=== PATIENT | male | born 1965 | race Caucasian/White ===

== ENCOUNTER → 2020-03-24 08:36 | Outpatient (BNVA) | payer MEDICARE, OTHER, SELFPAY | PROVIDERS: Family Provider Family Medicine; PCP Nurse Practitioner Family; Referring Provider Family Medicine; Visit Provider Anesthesiology Pain Medicine | DX: M50.90 Cervical disc disorder, unspecified, unspecified cervical region (principal); M50.00 Cervical disc disorder with myelopathy, unspecified cervical region; M54.12 Radiculopathy, cervical region; M47.812 Spondylosis without myelopathy or radiculopathy, cervical region; F17.220 Nicotine dependence, chewing tobacco, uncomplicated | CPT/HCPCS: 99205 ==